=== PATIENT | female | born 1940 | race Caucasian/White ===

== ENCOUNTER → 2019-08-30 10:53 | Outpatient (BNVA) | payer MEDICARE, OTHER, SELFPAY | PROVIDERS: Family Provider Family Medicine; Visit Provider Emergency Medicine | DX: R05 Cough (principal) | CPT/HCPCS: 87635 ==

== ENCOUNTER → 2020-05-12 09:46 | Outpatient (BNVA) | payer MEDICARE, OTHER, SELFPAY | PROVIDERS: Family Provider Family Medicine; Visit Provider Family Medicine | DX: M81.0 Age-related osteoporosis without current pathological fracture (principal); G47.00 Insomnia, unspecified | CPT/HCPCS: 80048 ==

== ENCOUNTER → 2020-10-27 13:45 | Outpatient (BNVA) | payer MEDICARE, OTHER, SELFPAY | PROVIDERS: Family Provider Family Medicine; Visit Provider Family Medicine | DX: M81.0 Age-related osteoporosis without current pathological fracture (principal); I10 Essential (primary) hypertension; L57.0 Actinic keratosis | CPT/HCPCS: 80053 ==

== ENCOUNTER → 2021-08-04 09:12 | Outpatient (BNVA) | payer MEDICARE, OTHER, SELFPAY | PROVIDERS: Family Provider Family Medicine; Visit Provider Family Medicine | DX: I10 Essential (primary) hypertension (principal); G47.00 Insomnia, unspecified; M81.0 Age-related osteoporosis without current pathological fracture; F51.01 Primary insomnia; G44.229 Chronic tension-type headache, not intractable | CPT/HCPCS: 80053 ==

== ENCOUNTER → 2021-12-08 10:28 | Outpatient (BNVA) | payer MEDICARE, OTHER, SELFPAY | PROVIDERS: Family Provider Family Medicine; PCP Family Medicine; Visit Provider Family Medicine | DX: Z20.822 Contact with and (suspected) exposure to COVID-19 (principal); R68.89 Other general symptoms and signs; J06.9 Acute upper respiratory infection, unspecified | CPT/HCPCS: 87400; 87426 ==

== ENCOUNTER → 2022-02-01 13:14 | Outpatient (BNVA) | payer MEDICARE, OTHER, SELFPAY | PROVIDERS: Family Provider Family Medicine; PCP Family Medicine; Visit Provider Family Medicine | DX: I10 Essential (primary) hypertension (principal); G47.00 Insomnia, unspecified; M81.0 Age-related osteoporosis without current pathological fracture; Z13.220 Encounter for screening for lipoid disorders; Z13.6 Encounter for screening for cardiovascular disorders; F51.01 Primary insomnia; J06.9 Acute upper respiratory infection, unspecified | CPT/HCPCS: 80053; 80061 ==

== ENCOUNTER 2022-04-04 08:11 | Emergency (ER) | payer MEDICARE, OTHER, SELFPAY ==
[2022-04-04 08:18] VITALS: BP 127/72; PULSE 90; RESP 16; TEMP 36.6; O2SAT 98
--- NOTE | 2022-04-04 08:39 | CTR_ITS ---
PROCEDURE INFORMATION: Exam: CT Head Without Contrast Exam date and time: 04/04/2022 8:54 AM Age: 81 years old Clinical indication: Syncope and collapse TECHNIQUE: Imaging protocol: Computed tomography of the head without contrast. Radiation optimization: All CT scans at this facility use at least one of these dose optimization techniques: automated exposure control; mA and/or kV adjustment per patient size (includes targeted exams where dose is matched to clinical indication); or iterative reconstruction. Other protocol: This patient has received 0 known CTs and 0 known cardiac nuclear medicine studies in the 12 months prior to the current study. COMPARISON: No relevant prior studies available. RADIATION DOSE METRICS: Total DLP (mGy-cm): 1053.28 FINDINGS: Brain: No acute intracranial hemorrhage. No edema. No mass effect. There are hypodense areas in the bilateral periventricular white matter suggestive of chronic small vessel ischemic changes. There is chronic lacunar infarction in the left basal ganglia adjacent to the genu you of the left internal capsule. Cerebral ventricles: No ventriculomegaly. Paranasal sinuses: Visualized sinuses are unremarkable. No fluid levels. Mastoid air cells: No mastoid effusion. Bones/joints: No acute fracture. No suspicious lytic or sclerotic bone lesions. Soft tissues: Unremarkable. CT/CT head wo con* [id number] IMPRESSION: No acute intracranial abnormality.
--- NOTE | 2022-04-04 08:39 | XRR_ITS ---
PROCEDURE INFORMATION: Exam: XR Chest Exam date and time: 04/04/2022 8:51 AM Age: 81 years old Clinical indication: Pain; Chest pressure; Additional info: Syncope TECHNIQUE: Imaging protocol: Radiologic exam of the chest. Views: 1 view. COMPARISON: No relevant prior studies available. FINDINGS: Lungs: No consolidation. Pleural spaces: Unremarkable. No pleural effusion. No pneumothorax. Heart/Mediastinum: No cardiomegaly. Bones/joints: No acute findings. XR/XR chest 1V portable [id number] IMPRESSION: No acute findings.
--- NOTE | 2022-04-04 08:40 | ECG_ITS ---
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 Measurements Intervals [place] Rate: 69 P: 62 HI: 224 QRS: -46 QRSD: 122 T: 51 QT: 403 QTc: 434 Interpretive Statements SINUS RHYTHM WITH FIRST DEGREE AV BLOCK LEFT AXIS DEVIATION [QRS AXIS < -30] VOLTAGE CRITERIA FOR LVH [MEETS CRITERIA IN ONE OF: R(aVL), S(V1), R(V5), R(V5/V6)+S(V1)] POSSIBLE ANTERIOR MYOCARDIAL INFARCTION , OF INDETERMINATE AGE [30 ms Q WAVE IN V3/V4, OR R < 0.2 mV IN V4] No previous ECG available for comparison Electronically Signed On 04-04-2022 22:03:42 BMET by Nara Vera M.D. [id number]
--- NOTE | 2022-04-04 09:52 | W.ED.SYNCOPE ---
HPI - Syncope General: Chief Complaint: Syncope Stated Complaint: passed out Time Seen by Provider: 04/04/22 08:22 History of Present Illness: Patient is a 81-year-old female that presents to the emergency department with complaints of syncope. Patient is in the emergency department with her . He reports that they got up this morning and started cooking. Patient felt dizzy and went and sat down. She was sitting there for approximately 3 minutes when she had a syncopal episode from a seated position. Has been was able to help her to her feet approximately 2 minutes later and moved to the living room. She reports immediately after the event she felt a little short of breath. She ate breakfast and then came to the emergency department. She denies any symptoms at this time. Patient is a poor historian due to new onset of Alzheimer's. She is currently being treated for hypertension osteoporosis and Alzheimer's. Associated symptoms: Deny abdominal pain, chest pain, fever(s), headache(s) or nausea Review of Systems General: Reports: 10 or more systems reviewed and unremarkable except in HPI and below Const: Denies: fever(s), chills, change in appetite, change in weight, fatigue or malaise Eyes: Denies: change in vision, eye discomfort, eye discharge or eye redness ENMT: Denies: throat pain, enlarged tonsils, odynophagia, hoarseness, ear or mastoid pain, ear discharge, change in hearing, tinnitus, nasal discharge, nasal congestion, post nasal drip or sinus pain Card: Denies: chest pain, palpitations, irregular heart rhythm, edema, dyspnea on exertion, orthopnea or leg pain with exertion Resp: Reports: dyspnea; Denies: productive cough, non-productive cough, wheezing, stridor or chest congestion GI: Denies: abdominal pain, nausea, vomiting, dysphagia, diarrhea, constipation, bloating, GI cramping or hematochezia : Denies: flank pain, difficulty voiding, dysuria, urinary frequency, urinary urgency, urinary hesitancy, oliguria or hematuria Musc: Denies: neck pain, back pain, extremity pain, joint pain, joint swelling, joint redness, joint warmth or muscle weakness Skin/Breast: Denies: rash, pruritus, erythema, photosensitivity or new lesions Neuro: Reports: dizziness; Denies: headache(s), numbness in extremities, weakness in extremities, sensory changes, lack of coordination, difficulty walking, frequent falls, confusion, Slurred speech present, difficulty communicating thoughts, seizure-like activity or involuntary movements Endo: Denies: polyuria, polydipsia or tired all the time Darvin/Lymph: Denies: easy bruising or easy bleeding PFS ED PFSH: Medical History Chronic neck pain History of cardiac murmur Insomnia Osteoporosis Surgical History S/P cholecystectomy Family History Mother Cancer COLON CX Father Myocardial infarct CAD (coronary artery disease) Social History Alcohol intake: never Female Reproductive History: Spontaneous abortions: No Physical Exam Const: COMMON NORMALS: no acute distress, patient oriented x3 and alert GENERAL APPEARANCE: cooperative ORIENTATION/CONSCIOUSNESS: Yes awake, Yes oriented to person, Yes oriented to place and Yes oriented to time HENMT: COMMON NORMALS: normocephalic and atraumatic HEAD & SCALP: normocephalic and atraumatic FACE & SINUS: normal facial exam MOUTH: Normal oral and palatal mucosa present THROAT: posterior oropharynx normal Eye: COMMON NORMALS: Equal, round and reactive pupils present, EOMs intact bilaterally, conjunctivae normal and no scleral icterus GENERAL EYE: appearance normal, both eyes and all related structures ALIGNMENT: Yes alignment normal PERIORBITAL: periorbital findings normal CONJUNCTIVA: Yes conjunctivae normal PUPIL: Yes Equal, round and reactive pupils present Neck/C-Spine: COMMON NORMALS: full ROM GENERAL: Yes normal visual inspection Lymph: LYMPHATIC: no lymphadenopathy noted Chest: COMMONS NORMALS: normal inspection of the chest Breast/axilla inspection: Yes no chest deformity, asymmetry, normal contours, no nodules, masses, tenderness Resp: COMMON NORMALS: normal respiratory effort, No retractions, No use of accessory muscles and clear to auscultation bilaterally EFFORT & INSPECTION: Yes able to speak in complete sentences and Yes symmetric chest movement AUSCULTATION: clear to auscultation bilaterally Cardio: COMMON NORMALS: regular rate, regular rhythm and Peripheral pulses 2+ throughout RATE: regular rate RHYTHM: regular rhythm PERIPHERAL PULSES: Peripheral pulses 2+ throughout GI: COMMON NORMALS: Normal to inspection, nondistended, normoactive bowel sounds present, Soft to palpation, non-tender and No hepatosplenomegaly present INSPECTION: Yes normal to inspection AUSCULTATION: Yes normoactive bowel sounds PALPATION: Yes Soft to palpation and Yes No hepatosplenomegaly present RECTAL EXAM: deferred Extremity: COMMON NORMALS: normal to inspection GENERAL: Yes normal exam except as noted Neuro: COMMON NORMALS: patient oriented x3 SENSORIUM/ORIENTATION: Yes alert, Yes oriented to person, Yes oriented to place and Yes oriented to time CRANIAL NERVES: Yes CN normal except as noted Psych: COMMON NORMALS: mental status grossly normal, Normal thought process present, cooperative, activity/motor behavior normal, denies homicidal ideation and denies suicidal ideation THOUGHT PROCESS: Normal thought process present Skin: COMMON NORMALS: no rashes or lesions noted, no wounds and turgor normal GENERAL SKIN EXAM: no rashes or lesions noted and turgor normal Course Vital Signs: Vital signs: Vital Signs Temperature 97.9 F 04/04/22 08:18 Pulse Rate 77 04/04/22 12:51 Respiratory Rate 16 04/04/22 08:18 Blood Pressure 116/64 04/04/22 14:21 Pulse Oximetry 96 04/04/22 12:51 Oxygen Delivery Me thod 04/04/22 12:51 MDM - Syncope Medical Decision Making Differential diagnosis include hypoglycemia, syncope, cardiac arrhythmia, cardiac event, CVA. Patient was evaluated in the emergency department for syncope. Patient is adamant that the event occurred due to not eating since 1600 the day before. Upon entry into the emergency department we obtained an EKG. EKG completed at 846 reveals a first-degree AV block with a ventricular rate of 69 beats a minute and a QTc of 423. There is no ST elevation, abnormal T wave inversion. Subsequent EKG completed at 11:00. It reveals a sinus rhythm with a ventricular rate of 72 beats a minute, QTc of 424. Stable EKG. Laboratory studies further evaluated. She does not have a leukocytosis, anemia, electrolyte dysfunction, renal or hepatic dysfunction, troponins are stable at 6 with a delta of 0. BNP unremarkable. Patient does have a possible urinary tract infection with urine white blood cells of 5-10, positive leukoesterase and trace bacteria. Negative for nitrates. Patient is going to be treated with nitrofurantoin. Orthostatics were completed. While lying blood pressure was 136/74, sitting 119/57, standing 90/57. I initiated a 500 cc bolus and orthostatics were rechecked. Systolic did not fall below 116 with standing. We ambulated with her and she did very well. Prevented discharge her home with antibiotics and have her return as needed. Patient is to follow-up with primary care Lab Data 04/04/22 09:59 04/04/22 09:59 Radiology Impressions Chest X-Ray 04/04/22 08:39 IMPRESSION: No acute findings. Head CT 04/04/22 08:39 IMPRESSION: No acute intracranial abnormality. Laboratory Results WBC 8.4 10^3/uL (4.0-10.0) 04/04/22 09:59 RBC 4.13 10^6/uL (4.1-5.3) 04/04/22 09:59 Hgb 12.9 g/dL (11.5-15.3) 04/04/22 09:59 Hct 40.7 % (37.0-47.0) 04/04/22 09:59 MCV 98.5 fl (81-99) 04/04/22 09:59 MCH 31.2 pg (28.0-34.0) 04/04/22 09:59 MCHC 31.7 g/dL (30.0-36.0) 04/04/22 09:59 RDW 13.8 % (12.1-15.1) 04/04/22 09:59 Plt Count 344 10^3/cmm (130-400) 04/04/22 09:59 MPV 9.7 fL (7.4-10.4) 04/04/22 09:59 Neut % (Auto) 74.0 % 04/04/22 09:59 Lymph % (Auto) 16.1 % 04/04/22 09:59 [place] % (Auto) 8.4 % 04/04/22 09:59 Eos % (Auto) 0.0 % 04/04/22 09:59 Baso % (Auto) 1.4 % 04/04/22 09:59 Neut # (Auto) 6.24 10^3/uL (1.8-7.7) 04/04/22 09:59 Lymph # (Auto) 1.4 10^3/uL (0.8-4.8) 04/04/22 09:59 [place] # (Auto) 0.7 10^3/uL (0.2-0.9) 04/04/22 09:59 Eos # (Auto) 0.0 10^3/uL (0.0-0.8) 04/04/22 09:59 Baso # (Auto) 0.1 10^3/uL (0.0-0.1) 04/04/22 09:59 Nucleated RBC % (auto) 0 % 04/04/22 09:59 Nucleated RBCs # 0.0 /100WBC 04/04/22 09:59 Sodium 141 mmol/L (136-145) 04/04/22 09:59 Potassium 4.3 mmol/L (3.5-5.1) 04/04/22 09:59 Chloride 102 mmol/L (98-107) 04/04/22 09:59 Carbon Dioxide 27 mmol/L (22-29) 04/04/22 09:59 Anion Gap 16.3 (5-19) 04/04/22 09:59 BUN 26 mg/dL (8-23) H 04/04/22 09:59 Creatinine 0.9 mg/dL (0.5-0.9) 04/04/22 09:59 GFR Calculation Not Reportable 04/04/22 09:59 Glucose 132 mg/dL (65-115) H 04/04/22 09:59 Calculated Osmolality 299 mOsm/kg (285-295) H 04/04/22 09:59 Calcium 9.7 mg/dL (8.5-10.5) 04/04/22 09:59 Total Bilirubin 0.2 mg/dL (0.15-1.2) 04/04/22 09:59 AST 17 U/L (0-32) 04/04/22 09:59 ALT 10 U/L (0-33) 04/04/22 09:59 Alkaline Phosphatase 60 U/L (35-105) 04/04/22 09:59 Troponin T Baseline 6 ng/L (0-10) 04/04/22 09:59 Troponin T 120 Minute 6.00 ng/L (0-10) 04/04/22 11:50 Delta Troponin T 0 ABS# (0-10) 04/04/22 11:50 NT-Pro-B Natriuret Pep 54 pg/mL (0-450) 04/04/22 09:59 Total Protein 6.3 g/dL (6.6-8.7) L 04/04/22 09:59 Albumin 4.4 g/dL (3.5-5.2) 04/04/22 09:59 Globulin 1.9 g/dL (1.3-4.6) 04/04/22 09:59 Urine Color Straw (Yellow) 04/04/22 11:30 Urine Appearance Clear (CLEAR) 04/04/22 11:30 Urine pH 5 (5-7) 04/04/22 11:30 Ur Specific [place] 1.015 (1.005-1.030) 04/04/22 11:30 Urine Protein Neg (Negative) 04/04/22 11:30 Urine Glucose (UA) Norm (Normal) 04/04/22 11:30 Urine Ketones Negative (Negative) 04/04/22 11:30 Urine Blood Neg (Negative) 04/04/22 11:30 Urine Nitrate Negative (Negative) 04/04/22 11:30 Urine Bilirubin Neg (Negative) 04/04/22 11:30 Urine Urobilinogen Norm mg/dL (Negative) 04/04/22 11:30 Ur Leukocyte Esterase 1+ (Negative) H 04/04/22 11:30 Urine RBC None /hpf (0-2) 04/04/22 11:30 Urine WBC 5-10 /hpf (0-5) H 04/04/22 11:30 Ur Squamous Epith Cells 5-10 /hpf (0-5) H 04/04/22 11:30 Amorphous Sediment Not Reportable 04/04/22 11:30 Urine Bacteria Trace /hpf (NONE) 04/04/22 11:30 Discharge Plan Discharge Patient Disposition: Home Clinical Impression: Urinary tract infection, Syncope Condition: Stable Prescriptions: New nitrofurantoin monohyd/m-cryst 100 mg capsule 100 mg PO BID 5 Days Qty: 10 0RF No Action multivitamin Tablet 1 tab PO QAM aspirin 325 mg Tablet 325 mg PO QAM Calcium + D 600 mg-5 mcg (200 unit) Tablet 1 tab PO QAM Tylenol Ex Str Rapid Release 500 mg Tablet 1,000 mg PO BEDTIME rivastigmine 9.5 mg/24 hour patch 24 hour 1 patch topical DAILY lisinopril 20 mg tablet 20 mg PO QAM alendronate 35 mg tablet 35 mg PO Q7D Rx Instructions: on tuesday take 1 tablet by mouth once a week, take before food or drink, do not lay down for 30 minutes after taking Discharge Orders: Discharge ED (Routine); Ordered 04/04/22 Ordered By: Candie Hankins Referrals: Riddhi Cheema MD [Primary Care Provider] - Discharge Diet: Advance as tolerated Discharge Activity: Resume usual activity Patient Instructions: Syncope (ED), Urinary Tract Infection in Older Adults (ED) Activity Restrictions/Additional Instructions: Please return to the emergency department for new concerning or worsening symptoms. If you develop any chest pain or shortness of breath return promptly If you have another syncopal episode return promptly Coding Level of Care Code ED Building Maintenance Technician for Heydi Daigle
[2022-04-04 10:21] LABS: Basophils # 0.1 10^3/uL (0.0-0.1); Basophils % 1.4 %; Hematocrit 40.7 % (37.0-47.0); Hemoglobin 12.9 g/dL (11.5-15.3); Lymphocytes # 1.4 10^3/uL (0.8-4.8); Lymphocytes % 16.1 %; Mean Corpuscular HGB Conc 31.7 g/dL (30.0-36.0); Mean Corpuscular Hemoglobin 31.2 pg (28.0-34.0); Mean Corpuscular Volume 98.5 fl (81-99); Mean Platelet Volume 9.7 fL (7.4-10.4); Monocytes # 0.7 10^3/uL (0.2-0.9); Monocytes % 8.4 %; Neutrophils # 6.24 10^3/uL (1.8-7.7); Nucleated Red Blood Cells % 0 %; Platelet Count 344 10^3/cmm (130-400); Red Blood Count 4.13 10^6/uL (4.1-5.3); Red Cell Distribution Width 13.8 % (12.1-15.1); White Blood Count 8.4 10^3/uL (4.0-10.0)
[2022-04-04 10:37] LABS: Troponin(5th) Baseline 6 ng/L (0-10)
--- NOTE | 2022-04-04 10:40 | ECG_ITS ---
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 Measurements Intervals [place] Rate: 72 P: 63 [place]: 209 QRS: -45 QRSD: 117 T: 46 QT: 399 QTc: 439 Interpretive Statements SINUS RHYTHM LEFT AXIS DEVIATION [QRS AXIS < -30] MODERATE VOLTAGE CRITERIA FOR LVH, CONSIDER NORMAL VARIANT [MEETS CRITERIA IN ONE OF: R(aVL), S(V1), R(V5), R(V5/V6)+S(V1)] POSSIBLE ANTERIOR MYOCARDIAL INFARCTION , OF INDETERMINATE AGE [30 ms Q WAVE IN V3/V4, OR R < 0.2 mV IN V4] Compared to ECG 04/04/2022 08:48:36 First degree AV block no longer present Myocardial infarct finding still present Electronically Signed On 04-04-2022 22:19:49 FLOORWALKER by Nara Vera M.D. [id number]
[2022-04-04 10:51] LABS: Alanine Aminotransferase 10 U/L (0-33); Albumin Level 4.4 g/dL (3.5-5.2); Alkaline Phosphatase 60 U/L (35-105); Anion Gap 16.3 (5-19); Aspartate Amino Transferase 17 U/L (0-32); Blood Urea Nitrogen 26 mg/dL (8-23); Calcium 9.7 mg/dL (8.5-10.5); Carbon Dioxide 27 mmol/L (22-29); Chloride 102 mmol/L (98-107); Globulin 1.9 g/dL (1.3-4.6); Glucose 132 mg/dL (65-115); NT Pro B Type Natriuretic Pept 54 pg/mL (0-450); Osmolality Calculated 299 mOsm/kg (285-295); Potassium 4.3 mmol/L (3.5-5.1); Sodium 141 mmol/L (136-145); Total Bilirubin 0.2 mg/dL (0.15-1.2); Total Protein 6.3 g/dL (6.6-8.7)
[2022-04-04 12:45] LABS: Troponin 5 2HR Delta 0 ABS# (0-10)
[2022-04-04 12:51] VITALS: BP 129/67; PULSE 77; O2SAT 96
[2022-04-04 12:58] VITALS: BP 119/57; BP 136/74; BP 90/57
[2022-04-04] MEDS: sodium chloride 0.9% 500 ML IV (13:15)
[2022-04-04 13:22] LABS: Bilirubin Urine Neg (Negative); Blood Urine Neg (Negative); Glucose Urine UA Norm (Normal); Ketones Urine Negative (Negative); Nitrate Urine Negative (Negative); Protein Urine Neg (Negative); Specific Gravity, Urine 1.015 (1.005-1.030); Urine Appearance Clear (CLEAR); Urine Color Straw (Yellow); pH Urine 5 (5-7)
[2022-04-04 13:23] LABS: Add Urine Microscopic? YES; Leukocyte Esterase Urine 1+ (Negative); Urobilinogen Urine Norm (Negative)
[2022-04-04 13:24] LABS: Add Urine Culture? No; Bacteria Urine TRACE /hpf
[2022-04-04 14:21] VITALS: BP 116/64; BP 138/72; BP 150/78
== END 2022-04-04 14:40 | disposition home or self-care (01) ==
PROVIDERS: Emergency Provider Nurse Practitioner; PCP Family Medicine
DX: R55 Syncope and collapse (principal); N39.0 Urinary tract infection, site not specified; Z79.82 Long term (current) use of aspirin
CPT/HCPCS: 36415; 70450; 71045; 80053; 81001; 83880; 84484; 85025; 93005; 96360; 99285; J7040

== ENCOUNTER → 2022-04-23 09:18 | Outpatient (BNVA) | payer MEDICARE, OTHER, SELFPAY | PROVIDERS: PCP Family Medicine; Visit Provider Family Medicine | DX: M47.892 Other spondylosis, cervical region (principal); M54.2 Cervicalgia; G89.29 Other chronic pain | CPT/HCPCS: 72040 ==

== ENCOUNTER 2022-05-10 06:00 | Outpatient (RCR) | payer MEDICARE, OTHER, SELFPAY | END 2022-05-14 23:59 | disposition home or self-care (01) | LOC: MPT 06:00 | PROVIDERS: Visit Provider Family Medicine | DX: M54.2 Cervicalgia (principal); G89.29 Other chronic pain; M62.838 Other muscle spasm | CPT/HCPCS: 97110; 97162 ==

== ENCOUNTER 2022-05-15 06:00 | Outpatient (RCR) | payer MEDICARE, OTHER, SELFPAY | END 2022-05-27 23:59 | disposition home or self-care (01) | LOC: MPT 06:00 | PROVIDERS: Visit Provider Family Medicine | DX: M54.2 Cervicalgia (principal); G89.29 Other chronic pain | CPT/HCPCS: 97110; 97140 ==

== ENCOUNTER → 2022-12-30 09:26 | Outpatient (BNVA) | payer MEDICARE, OTHER, SELFPAY | PROVIDERS: PCP Family Medicine; Visit Provider Family Medicine | DX: M81.0 Age-related osteoporosis without current pathological fracture (principal); I10 Essential (primary) hypertension; M62.838 Other muscle spasm; J30.2 Other seasonal allergic rhinitis; Z13.220 Encounter for screening for lipoid disorders; Z13.6 Encounter for screening for cardiovascular disorders | CPT/HCPCS: 80053; 80061 ==

== ENCOUNTER → 2023-07-01 09:49 | Outpatient (BNVA) | payer MEDICARE, OTHER, SELFPAY | PROVIDERS: PCP Family Medicine; Referring Provider Family Medicine; Visit Provider Family Medicine | DX: I10 Essential (primary) hypertension (principal) | CPT/HCPCS: 80053 ==

== ENCOUNTER → 2024-03-12 11:35 | Outpatient (BNVA) | payer MEDICARE, SELFPAY | PROVIDERS: PCP Family Medicine; Visit Provider Family Medicine | DX: I10 Essential (primary) hypertension (principal); I65.02 Occlusion and stenosis of left vertebral artery; I66.02 Occlusion and stenosis of left middle cerebral artery; M54.2 Cervicalgia; G89.29 Other chronic pain; G30.1 Alzheimer's disease with late onset; F02.B0 Dementia in other diseases classified elsewhere, moderate, without behavioral disturbance, psychotic disturbance, mood disturbance, and anxiety; E78.00 Pure hypercholesterolemia, unspecified | CPT/HCPCS: 80053; 80061; 85025 ==

== ENCOUNTER → 2024-06-18 11:00 | Outpatient (BNVA) | payer MEDICARE, SELFPAY | PROVIDERS: PCP Family Medicine; Visit Provider Family Medicine | DX: M81.0 Age-related osteoporosis without current pathological fracture (principal); I10 Essential (primary) hypertension | CPT/HCPCS: 80053 ==

== ENCOUNTER → 2025-01-28 10:00 | Outpatient (BNVA) | payer MEDICARE, SELFPAY | PROVIDERS: PCP Family Medicine; Visit Provider Family Medicine | DX: I10 Essential (primary) hypertension (principal) | CPT/HCPCS: 80053 ==